=== PATIENT | female | born 1965 | race Caucasian/White ===

== ENCOUNTER 2017-04-23 16:37 | Emergency (ER) | payer MEDICAID ==
--- NOTE | 2017-04-23 17:13 | Emergency Department Record ---
History of Present Illness - General Chief complaint: Cold Stated complaint: COUGH,SINUS/CHEST CONGESTION,BODY ACHES Time Seen by Provider: 04/23/17 17:10 Source: Patient Mode of Arrival: Wheelchair Limitations: No limitations - History of Present Illness Initial comments: 51 yo female presents to ED for evaluation of cough and "feeling cold". Patient reports that her father who she lives with was recently diagnosed with pneumonia, and that she wanted to be evaluated to ensure that she did not also have pneumonia. Patient reports a history of MS, denies use of steroid treatments of immunocompromise. Onset/Timin -: Week(s) Severity: Moderate Quality: Aching Consistency: Intermittent Improves with: None Worsens with: None Associated Symptoms: Cough, Rhinorrhea - Related Data Home Medications Medication Instructions Recorded Confirmed Last Taken Cholecalciferol (Vitamin D3) 1 tab PO DAILY 04/23/17 04/23/17 04/23/17 [Vitamin D3] Cyclobenzaprine HCl [Flexeril] 10 mg PO TID 04/23/17 04/23/17 04/22/17 Multivitamin [Daily Multiple 1 tab PO DAILY 04/23/17 04/23/17 04/23/17 Vitamin] Natalizumab [Tysabri] 300 mg IV ASDIR 04/23/17 04/23/17 03/28/17 Allergies Allergy/AdvReac Type Severity Reaction Status Date / Time No Known Drug Allergies Allergy Verified 04/23/17 16:46 Travel Screening - Travel/Exposure Within Last 30 Days Have you traveled within the last 30 days?: No - Travel/Exposure Within Last Year Have you traveled outside the [place] in the last year?: No - Additonal Travel Details Have you been exposed to anyone with a communicable illness?: No - Travel Symptoms Symptom Screening: None Review of Systems Constitutional: Reports: Chills. Denies: Fever, Malaise, Night sweats Eyes: Denies: Eye discharge, Eye pain ENT: Denies: Congestion, Ear pain, Epistaxis Respiratory: Reports: Cough Cardiovascular: Denies: Chest pain, Dyspnea on exertion Endocrine: Denies: Fatigue, Heat or cold intolerance Gastrointestinal: Denies: Nausea, Vomiting Genitourinary: Denies: Incontinence, Retention Musculoskeletal: Denies: Arthralgia, Back pain, Gout, Joint swelling Skin: Denies: Bruising, Change in color Neurological: Denies: Abnormal gait, Confusion, Headache, Seizure Psychiatric: Denies: Anxiety Hematological/Lymphatic: Denies: Anemia, Blood Clots Past Medical History - SOCIAL HISTORY Smoking Status: Never smoker Alcohol Use: None Drug Use: None - RESPIRATORY Hx Respiratory Disorders: No - CARDIOVASCULAR Hx Cardio Disorders: No - NEURO Hx Neuro Disorders: Yes Comment:: M.S. - GI Hx GI Disorders: No - Hx Genitourinary Disorders: No - ENDOCRINE Hx Endocrine Disorders: No - MUSCULOSKELETAL Hx Musculoskeletal Disorders: No - HEMATOLOGY/ONCOLOGY Hx Hematology/Oncology Disorders: No Family Medical History Any Significant Family History?: No Physical Exam - General General Appearance: Alert, Oriented x3, Cooperative, No acute distress Limitations: No limitations - Head Head exam: Atraumatic, Normocephalic, Normal inspection Head exam detail: negative: Abrasion, Contusion, Pineda's sign, General tenderness, Hematoma, Laceration - Eye Eye exam: Normal appearance. negative: Conjunctival injection, Periorbital swelling, Periorbital tenderness, Scleral icterus - ENT Ear exam: negative: Auricular hematoma, Auricular trauma Nasal Exam: negative: Active bleeding, Discharge, Dried blood, Foreign body Mouth exam: negative: Drooling, Laceration, Tongue elevation - Neck Neck exam: Normal inspection. negative: Meningismus, Tenderness - Respiratory Respiratory exam: Normal lung sounds bilaterally. negative: Rales, Respiratory distress, Rhonchi, Stridor - Cardiovascular Cardiovascular Exam: Regular rate, Normal rhythm, Normal heart sounds - GI/Abdominal GI/Abdominal exam: Soft. negative: Rebound, Rigid, Tenderness - Rectal Rectal exam: Deferred - exam: Deferred - Extremities Extremities exam: Normal inspection. negative: Pedal edema, Tenderness - Back Back exam: Denies: CVA tenderness (R), CVA tenderness (L) - Neurological Neurological exam: Alert, Normal gait, Oriented X3 - Psychiatric Psychiatric exam: Normal affect, Normal mood - Skin Skin exam: Normal color. negative: Abrasion Type of lesion: negative: abrasion Course Vital Signs 04/23/17 16:50 Temperature 97.7 F Pulse Rate 89 Respiratory 16 Rate Blood Pressure 106/65 Pulse Ox 97 - Reevaluation(s) Reevaluation #1: 04/23/17 18:00 CXR: No acute process Influenza is negative. Patient was updated on all results, reassessed and appears to be resting comfortably. Patient appears stable for discharge with continued symptomatic treatment at home. Disposition Disposition: Discharge Clinical Impression: URI (upper respiratory infection) Qualifiers: URI type: unspecified URI Qualified Code(s): J06.9 - Acute upper respiratory infection, unspecified Disposition: Home, Self-Care Condition: (2) Stable Instructions: Upper Respiratory Infection (ED) Additional Instructions: Return to ED if your symptoms worsen or if you have any concerns Follow-up with your family doctor in 3-5 days as directed. Forms: Patient Portal Access Time of Disposition: 18:00 Quality - Quality Measures Quality Measures: N/A - Blood Pressure Screening Does Patient Have Any of the Following: No Blood Pressure Classification: Normal BP Reading Systolic Measurement: 106 Diastolic Measurement: 65 Screening for High Blood Pressure: < Normal BP, F/U Not Required > [G8783]
[2017-04-23 17:58] LABS: INFLUENZA A NEGATIVE (NEGATIVE); INFLUENZA B NEGATIVE (NEGATIVE)
--- NOTE | 2017-04-25 03:56 | RADIOLOGY REPORT ---
DATE: 04/23/2017. EXAM: TWO VIEWS OF THE CHEST. HISTORY: The patient has a cough. TECHNIQUE: Two views of the chest are provided without comparison studies. FINDINGS: The cardiomediastinal silhouette is within normal limits for size and contour. The chris appear unremarkable. There is no radiographic evidence of a focal infiltrate or pleural effusion. IMPRESSION: NO RADIOGRAPHIC EVIDENCE OF AN ACUTE INTRATHORACIC PROCESS. JOB NUMBER: [id number] MTDD
== END 2017-04-23 18:13 | disposition home or self-care (01) ==
LOC: ER 16:37
DX: J06.9 Acute upper respiratory infection, unspecified (principal); R05 Cough
CPT/HCPCS: 71020; 87400; 99283

== ENCOUNTER 2018-03-29 15:46 | Emergency (ER) | payer MEDICAID ==
--- NOTE | 2018-03-29 16:13 | Emergency Department Record ---
History of Present Illness - General Chief Complaint: Fall Injury Stated Complaint: FALL INJURY,HEAD Time Seen by Provider: 03/29/18 16:04 Source: Patient, Family Mode of Arrival: Wheelchair Limitations: No limitations - History of Present Illness Initial Comments: The patient is here due to a trip and fall at home about a half hour ago. She hit her forehead on a dining room chair and sustained a small 1 cm lac. There was no LOC and no complaints of neck pain. Since she fell she has had no visual changes, nausea, vomiting, or confusion. The patient also is not on any blood thinners and her Td is UTD. Complaint: Fall Onset/Timin -: Minutes(s) Fall From: Other When Fall Occurred: Just prior to arrival Fall Witnessed: No Place Fall Occurred: Home Loss of Consciousness: None Prolonged Down Time?: No Symptoms Prior to Fall: None Location: Head Severity scale (1-10): 8 Context: Other Associated Symptoms: Denies - [place] Coma Scale Eye Response: (4) Open spontaneously - Related Data Allergies Allergy/AdvReac Type Severity Reaction Status Date / Time No Known Drug Allergies Allergy Unverified 01/08/18 18:44 Travel Screening - Travel/Exposure Within Last 30 Days Have you traveled within the last 30 days?: No Review of Systems Constitutional: Denies: Chills, Fever Eyes: Denies: Eye discharge ENT: Denies: Congestion Respiratory: Denies: Cough, Dyspnea Past Medical History - SOCIAL HISTORY Smoking Status: Never smoker Alcohol Use: None Drug Use: None - RESPIRATORY Hx Respiratory Disorders: No - CARDIOVASCULAR Hx Cardio Disorders: No - NEURO Hx Neuro Disorders: Yes Comment:: M.S. - GI Hx GI Disorders: No - Hx Genitourinary Disorders: No - ENDOCRINE Hx Endocrine Disorders: No - MUSCULOSKELETAL Hx Musculoskeletal Disorders: No - PSYCH Hx Psych Problems: No - HEMATOLOGY/ONCOLOGY Hx Hematology/Oncology Disorders: No Family Medical History Any Significant Family History?: No Physical Exam - General General Appearance: Alert, Cooperative, No acute distress - Head Head exam: Normocephalic. negative: Atraumatic (There is a 1 cm vertical oriented lac to the R mid frontal skull area.) Head exam detail: negative: Pineda's sign, CSF otorrhea - Eye Eye exam: Normal appearance, PERRL, EOMI - Neck Neck exam: Normal inspection, Full ROM. negative: Tenderness (There is no Cspine tenderness.) - Respiratory Respiratory exam: Normal lung sounds bilaterally. negative: Respiratory distress - Cardiovascular Cardiovascular Exam: Regular rate, Normal rhythm, Normal heart sounds - GI/Abdominal GI/Abdominal exam: Soft, Normal bowel sounds. negative: Tenderness - Extremities Extremities exam: Normal inspection. negative: Full ROM (The patient has chronic R sided weakness.), Tenderness - Neurological Neurological exam: Abnormal gait (chronic. Uses a walker at home.), Alert, Motor sensory deficit (Chronic R sided weakness.). negative: Altered, Normal gait Course Vital Signs 03/29/18 16:06 Temperature 97.8 F Pulse Rate [ 76 Pulse Ox Probe] Respiratory 20 Rate Blood Pressure 112/79 [Left Arm] Pulse Ox 98 - Reevaluation(s) Reevaluation #1: Procedure note: The frontal scalp lac was cleansed with betadine and lavaged with sterile saline. The lac was then explored and not down to the bone. It was minimally debrided and then closed with 5 5.0 nylon sutures. There were no complications. 03/29/18 16:44 Reevaluation #2: The patient is doing very well at this time. She is very happy and having no head pain now. There has been no nausea or vomiting. 03/29/18 17:06 Reevaluation #3: The patient is doing very well at this time. She denies any [place], nausea, vomiting or visual changes. She is up walking with a walker normally with no pain or discomfort. I see no signs of any head injury at this time. Her family understands the need to observer at home and to return for any signs of any significant head injury. 03/29/18 17:38 Disposition Disposition: Discharge Clinical Impression: Laceration of forehead Qualifiers: Encounter type: initial encounter Qualified Code(s): S01.81XA - Laceration without foreign body of other part of head, initial encounter Disposition: Home, Self-Care Condition: (2) Stable Instructions: Facial Laceration (ED) Additional Instructions: Keep the laceration dry for 2 days then no soaking or swimming but you may wash it daily. Have the sutures removed in 7 days. Return to the ER for any headache , nausea, vomiting, or confusion. Forms: Patient Portal Access Time of Disposition: 17:37 Quality - Quality Measures Quality Measures: N/A - Blood Pressure Screening View Details: Yes Does Patient Have Any of the Following: No Blood Pressure Classification: Normal BP Reading Systolic Measurement: 112 Diastolic Measurement: 79 Screening for High Blood Pressure: < Normal BP, F/U Not Required > [G8750]
[2018-03-29] MEDS: ACETAMINOPHEN 325 MG TAB PO ONE (16:19)
== END 2018-03-29 17:57 | disposition home or self-care (01) ==
LOC: ER 15:46
DX: S01.01XA Laceration without foreign body of scalp, initial encounter (principal); W01.10XA Fall on same level from slipping, tripping and stumbling with subsequent striking against unspecified object, initial encounter; Y92.009 Unspecified place in unspecified non-institutional (private) residence as the place of occurrence of the external cause; Z91.81 History of falling
CPT/HCPCS: 12011; 99283

== ENCOUNTER 2018-04-05 13:19 | Emergency (ER) | payer MEDICAID ==
--- NOTE | 2018-04-05 13:40 | Emergency Department Record ---
History of Present Illness - General Chief Complaint: Suture removal Stated Complaint: SUTURE REMOVAL Time Seen by Provider: 04/05/18 13:22 Source: Patient Mode of arrival: Wheelchair Limitations: No limitations - History of Present Illness Initial Comments: The patient is here for suture removal. She denies any problems. Complaint: Suture/staple removal Onset/Timin -: Days(s) Initial Visit For: Laceration Returns Today for: Staple/stitch removal Symptoms Since Prior Visit: No new symptoms Associated Symptoms: None - Related Data Allergies Allergy/AdvReac Type Severity Reaction Status Date / Time No Known Drug Allergies Allergy Verified 04/05/18 13:35 Travel Screening - Travel/Exposure Within Last 30 Days Have you traveled within the last 30 days?: No Past Medical History - SOCIAL HISTORY Smoking Status: Never smoker Alcohol Use: None Drug Use: None - RESPIRATORY Hx Respiratory Disorders: No - CARDIOVASCULAR Hx Cardio Disorders: No - NEURO Hx Neuro Disorders: Yes Comment:: M.S. - GI Hx GI Disorders: No - Hx Genitourinary Disorders: No - ENDOCRINE Hx Endocrine Disorders: No - MUSCULOSKELETAL Hx Musculoskeletal Disorders: No - PSYCH Hx Psych Problems: No - HEMATOLOGY/ONCOLOGY Hx Hematology/Oncology Disorders: No Family Medical History Any Significant Family History?: No Physical Exam - General General Appearance: Alert, Cooperative - Head Head exam: negative: Atraumatic (The 5 sutures were removed from the forehead. There were no complications.) Disposition Disposition: Discharge Clinical Impression: Encounter for removal of sutures Disposition: Home, Self-Care Condition: (2) Stable Instructions: Stitches Removal (ED) Additional Instructions: Return to the ER for any problems. Forms: Patient Portal Access Time of Disposition: 13:39 Quality - Quality Measures Quality Measures: N/A - Blood Pressure Screening View Details: Yes Does Patient Have Any of the Following: No Blood Pressure Classification: Pre-Hypertensive BP Reading Systolic Measurement: 118 Diastolic Measurement: 85 Screening for High Blood Pressure: < Pre-Hypertensive BP, F/U Documented > [ G8950] Pre-Hypertensive Follow-up Interventions: Referral to alternative/primary care provider.
== END 2018-04-05 13:48 | disposition home or self-care (01) ==
LOC: ER 13:19
DX: Z48.02 Encounter for removal of sutures (principal)